=== PATIENT | female | born 1990 | race Caucasian/White ===

== ENCOUNTER 2018-07-07 18:56 | Emergency (ER) | payer OTHER ==
[~2018-07-07] VITALS: Ht 160 cm; Wt 59.0 kg
[2018-07-07 18:56] VITALS: BP 133/88
== END 2018-07-07 19:33 | disposition home or self-care (01) ==
LOC: ER 19:02
DX: F32.9 Major depressive disorder, single episode, unspecified (principal); F41.9 Anxiety disorder, unspecified; Z76.0 Encounter for issue of repeat prescription; Z88.0 Allergy status to penicillin
CPT/HCPCS: Z7502

== ENCOUNTER 2018-08-10 21:30 | Emergency (ER) | payer OTHER ==
[~2018-08-10] VITALS: Ht 160 cm; Wt 54.4 kg
[2018-08-10 21:35] VITALS: BP 120/83
== END 2018-08-10 22:46 | disposition home or self-care (01) ==
LOC: ER 21:30
DX: F32.9 Major depressive disorder, single episode, unspecified (principal); Z76.0 Encounter for issue of repeat prescription; Z88.0 Allergy status to penicillin; Z60.2 Problems related to living alone

== ENCOUNTER 2018-08-13 22:25 | Emergency (ER) | payer OTHER ==
[~2018-08-13] VITALS: Ht 160 cm; Wt 54.4 kg
--- NOTE | 2018-08-13 22:58 | NUR ---
BIBS. C/O "HAVING TROUBLE SWALLOWING, THROAT PAIN AND SWELLING" -PAIN NOTED. -ACUTE DISTRESS. AOX4. AMBULATORY.
[2018-08-14 00:14] VITALS: BP 120/88
== END 2018-08-14 00:14 | disposition home or self-care (01) ==
LOC: ER 22:32
DX: J02.9 Acute pharyngitis, unspecified (principal); F32.9 Major depressive disorder, single episode, unspecified; Z88.0 Allergy status to penicillin; Z60.2 Problems related to living alone
CPT/HCPCS: 86403-TC; 87070-TC

== ENCOUNTER 2018-12-24 21:42 | Emergency (ER) | payer OTHER ==
[~2018-12-24] VITALS: Ht 160 cm; Wt 56.7 kg
[2018-12-24 21:58] VITALS: BP 130/89
[2018-12-24] MEDS ORDERED: buPROPion 75 MG TABLET PO ONE (22:30)
[2018-12-24] MEDS ORDERED: buPROPion 100 MG TABLET ONE (22:50)
== END 2018-12-24 22:56 | disposition home or self-care (01) ==
LOC: ER 21:43
DX: Z76.0 Encounter for issue of repeat prescription (principal); F41.9 Anxiety disorder, unspecified; F32.9 Major depressive disorder, single episode, unspecified; Z88.0 Allergy status to penicillin; Z60.2 Problems related to living alone